=== PATIENT | female | born 1995 | race African-American/Black ===

== ENCOUNTER 2017-04-04 10:43 | Emergency (ER) | payer SELFPAY ==
[~2017-04-04] VITALS: Wt 84.4 kg
[~2017-04-04 10:43] MED LIST: BACTRIM DS 8001 TA1 PO; CIPROFLOXACIN500 MG PO; FLAGYL500 MG PO; KEFLEX500 MG PO; KEPPRA250 MG PO; KEPPRA750 MG PO; MACROBID100 M1 PO; Motrin,Rufen800 MG PO; PERCOCET 325 MG1 TA2 PO; PHENERGAN25 M1 PO; PRENATAL1 TA7 PO; TOPAMAX50 MG PO; ULTRAM50 MG PO; ZOFRAN ODT4 MG SL; Zofran4 MG PO; [UNRECOGNIZED DRUG - OTHER]
[2017-04-04 11:18] LABS: BILIRUBIN NEGATIVE (NEGATIVE); BLOOD NEGATIVE (NEGATIVE); CLARITY SL CLOUDY (CLEAR); COLOR YELLOW (YELLOW); GLUCOSE NEGATIVE (NEGATIVE); KETONE NEGATIVE (NEGATIVE); LEUKO ESTERASE 1+ (NEGATIVE); NITRITE NEGATIVE (NEGATIVE); UROBILINOGEN 0.2 E.U./dl (0.2-1.0)
[2017-04-04 11:27] LABS: BACTERIA TRACE; WBC 21-30 wbc/hpf (0-5)
[2017-04-04 12:23] LABS: BASO % 0.3 % (0.0-1.0); EOS # 0.1 10*3/uL (0.0-0.4); EOS % 1.1 % (1.0-4.0); HEMOGLOBIN 13.4 g/dl (12.0-16.0); LYMPH # 2.4 10*3/uL (1.3-4.4); LYMPH % 34.1 % (27.0-41.0); MEAN CELL VOLUME 85.1 fl (81.0-99.0); MEAN CORPUSCULAR HGB 28.5 pg (27.0-31.0); MEAN CORPUSCULAR HGB CONC 33.5 g/dl (33.0-37.0); MEAN PLATELET VOLUME 9.4 fl (9.6-12.3); MONO # 0.4 10*3/uL (0.1-1.0); MONO % 5.5 % (3.0-9.0); NEUT # 4.2 10*3/uL (2.3-7.9); NEUT % 58.9 % (47.0-73.0); PLATELET COUNT AUTOMATED 240 10*3/uL (130-400); RED CELL DISTRI WIDTH 13.5 % (0-14.5); WHITE BLOOD COUNT 7.1 10*3/uL (4.8-10.8)
[2017-04-04 12:38] LABS: ALBUMIN 3.7 gm/dl (3.1-4.5); ALKALINE PHOSPHATASE 54 U/L (45-117); BUN 12 mg/dl (7-24); CHLORIDE 110 mmol/L (98-107); CREATININE 0.67 mg/dL (0.55-1.02); POTASSIUM 4.1 mmol/L (3.5-5.1); SGOT/AST 8 IU/L (3-35); SGPT/ALT 17 U/L (12-78); SODIUM 141 mmol/L (136-145); TOTAL PROTEIN 7.4 gm/dL (6.4-8.2)
[2017-04-04] MEDS ORDERED: AMINOPHYLLIN200 MG PO (13:09)
== END 2017-04-04 13:12 | disposition home or self-care (01) ==
LOC: ED 10:43
PROVIDERS: Physician Assistant
DX: N30.00 Acute cystitis without hematuria (principal); F17.200 Nicotine dependence, unspecified, uncomplicated; Z88.8 Allergy status to other drugs, medicaments and biological substances

== ENCOUNTER 2017-06-02 23:38 | Emergency (ER) | payer SELFPAY ==
[~2017-06-02] VITALS: Ht 180.3 cm; Wt 77.1 kg
[~2017-06-02 23:38] MED LIST changes: +AMINOPHYLLIN200 MG PO
[2017-06-03 00:09] LABS: BASO % 0.2 % (0.0-1.0); EOS % 0.2 % (1.0-4.0); HEMATOCRIT 40.8 % (37.0-47.0); HEMOGLOBIN 13.9 g/dl (12.0-16.0); LYMPH # 1.5 10*3/uL (1.3-4.4); LYMPH % 11.3 % (27.0-41.0); MEAN CORPUSCULAR HGB CONC 34.1 g/dl (33.0-37.0); MEAN PLATELET VOLUME 9.1 fl (9.6-12.3); MONO # 0.8 10*3/uL (0.1-1.0); MONO % 5.9 % (3.0-9.0); NEUT % 82.1 % (47.0-73.0); PLATELET COUNT AUTOMATED 244 10*3/uL (130-400); RED CELL DISTRI WIDTH 13.6 % (0-14.5); WHITE BLOOD COUNT 13.3 10*3/uL (4.8-10.8)
[2017-06-03 00:22] LABS: BUN 11 mg/dl (7-24); CHLORIDE 103 mmol/L (98-107); CREATININE 0.91 mg/dL (0.55-1.02); POTASSIUM 3.5 mmol/L (3.5-5.1); SODIUM 138 mmol/L (136-145)
[2017-06-03] MEDS ORDERED: Phenergan25 MG PO (02:46)
[2017-06-03] MEDS ORDERED: LOMOTIL 2.5-0.1 EACH PO (02:46)
== END 2017-06-03 03:03 | disposition home or self-care (01) ==
LOC: ED 23:38
PROVIDERS: Student in an Organized Health Care Education/Training Program
DX: A08.4 Viral intestinal infection, unspecified (principal); F17.200 Nicotine dependence, unspecified, uncomplicated; Z88.8 Allergy status to other drugs, medicaments and biological substances

== ENCOUNTER 2017-06-12 10:45 | Emergency (ER) | payer SELFPAY ==
[~2017-06-12] VITALS: Ht 180.3 cm; Wt 85.7 kg
[~2017-06-12 10:45] MED LIST changes: +LOMOTIL 2.5-0.1 EACH PO; +Phenergan25 MG PO
[2017-06-12] MEDS ORDERED: ROBITUSSIN DM 105 ML PO (11:15)
[2017-06-12] MEDS ORDERED: CLARITIN10 MG PO (11:15)
[2017-06-12] MEDS ORDERED: FLONASE ALLERG9.9 ML NAS (11:15)
[2017-06-12] MEDS ORDERED: PREDNISONE10 MG PO (11:15)
== END 2017-06-12 14:40 | disposition home or self-care (01) ==
LOC: ED 10:45
DX: J20.9 Acute bronchitis, unspecified (principal); R03.0 Elevated blood-pressure reading, without diagnosis of hypertension; F17.200 Nicotine dependence, unspecified, uncomplicated; Z79.899 Other long term (current) drug therapy; Z88.8 Allergy status to other drugs, medicaments and biological substances

== ENCOUNTER 2017-08-29 07:43 | Emergency (ER) | payer OTHER ==
[~2017-08-29] VITALS: Ht 180.3 cm; Wt 86.2 kg
[~2017-08-29 07:43] MED LIST changes: +CLARITIN10 MG PO; +FLONASE ALLERG9.9 ML NAS; +PREDNISONE10 MG PO; +ROBITUSSIN DM 105 ML PO
[2017-08-29] MEDS ORDERED: Motrin,Rufen800 MG PO (08:54)
== END 2017-08-29 08:57 | disposition home or self-care (01) ==
LOC: ED 07:43
DX: S63.592A Other specified sprain of left wrist, initial encounter (principal); S16.1XXA Strain of muscle, fascia and tendon at neck level, initial encounter; Z79.899 Other long term (current) drug therapy; Z88.8 Allergy status to other drugs, medicaments and biological substances; V49.88XA Car occupant (driver) (passenger) injured in other specified transport accidents, initial encounter; Y93.89 Activity, other specified; Y92.89 Other specified places as the place of occurrence of the external cause; Y99.9 Unspecified external cause status

== ENCOUNTER 2017-09-22 08:40 | Emergency (ER) | payer SELFPAY ==
[~2017-09-22] VITALS: Ht 180.3 cm; Wt 88.5 kg
[2017-09-22 09:13] LABS: BILIRUBIN NEGATIVE (NEGATIVE); BLOOD NEGATIVE (NEGATIVE); CLARITY SL CLOUDY (CLEAR); COLOR YELLOW (YELLOW); GLUCOSE NEGATIVE (NEGATIVE); KETONE TRACE (NEGATIVE); LEUKO ESTERASE NEGATIVE (NEGATIVE); NITRITE NEGATIVE (NEGATIVE); PH 5.5 (5.0-9.0); SPECIFIC GRAVITY >= 1.030 (1.005-1.030); UROBILINOGEN 0.2 E.U./dl (0.2-1.0)
[2017-09-22 09:22] LABS: BASO % 0.4 % (0.0-1.0); EOS # 0.1 10*3/uL (0.0-0.4); EOS % 1.5 % (1.0-4.0); HEMATOCRIT 40.5 % (37.0-47.0); HEMOGLOBIN 13.7 g/dl (12.0-16.0); LYMPH # 2.4 10*3/uL (1.3-4.4); LYMPH % 30.7 % (27.0-41.0); MEAN CELL VOLUME 86.7 fl (81.0-99.0); MEAN CORPUSCULAR HGB 29.3 pg (27.0-31.0); MEAN CORPUSCULAR HGB CONC 33.8 g/dl (33.0-37.0); MEAN PLATELET VOLUME 9.3 fl (9.6-12.3); MONO # 0.6 10*3/uL (0.1-1.0); MONO % 7.7 % (3.0-9.0); NEUT # 4.6 10*3/uL (2.3-7.9); NEUT % 59.4 % (47.0-73.0); PLATELET COUNT AUTOMATED 253 10*3/uL (130-400); RED BLOOD COUNT 4.67 10*6/uL (4.10-5.10); RED CELL DISTRI WIDTH 13.6 % (0-14.5); WHITE BLOOD COUNT 7.8 10*3/uL (4.8-10.8)
[2017-09-22 09:25] LABS: BACTERIA TRACE; EPITHELIAL CELLS 21-30; MUCOUS TRACE
[2017-09-22 09:34] LABS: URINE AMPHETAMINES < 1000 (1000ng/ml); URINE BARBITURATES < 200 (200ng/ml); URINE BENZODIAZEPINES < 200 (200ng/ml); URINE CANNABINOIDS (THC) > 50 (50ng/ml); URINE COCAINE < 300 (300ng/ml); URINE METHADONE < 300 (300ng/ml); URINE OPIATES > 300 (300ng/ml)
[2017-09-22 09:35] LABS: URINE PHENCYCLIDINE < 25 (25ng/ml)
[2017-09-22 09:37] LABS: ALBUMIN 4.1 gm/dl (3.1-4.5); ALKALINE PHOSPHATASE 52 U/L (45-117); BUN 10 mg/dl (7-24); CHLORIDE 107 mmol/L (98-107); LIPASE 65 U/L (73-393); POTASSIUM 3.8 mmol/L (3.5-5.1); SGOT/AST 10 IU/L (3-35); SGPT/ALT 18 U/L (12-78); SODIUM 138 mmol/L (136-145); TOTAL PROTEIN 7.5 gm/dL (6.4-8.2)
[2017-09-22 09:40] LABS: B-hCG (QUALITATIVE) NEGATIVE (NEGATIVE)
== END 2017-09-22 10:10 | disposition home or self-care (01) ==
LOC: ED 08:40
PROVIDERS: Emergency Medicine
DX: K52.9 Noninfective gastroenteritis and colitis, unspecified (principal); F17.200 Nicotine dependence, unspecified, uncomplicated; Z88.8 Allergy status to other drugs, medicaments and biological substances

== ENCOUNTER 2018-01-04 04:09 | Emergency (ER) | payer SELFPAY ==
[~2018-01-04] VITALS: Ht 180.3 cm; Wt 83.9 kg
[2018-01-04 04:29] LABS: BILIRUBIN NEGATIVE (NEGATIVE); BLOOD NEGATIVE (NEGATIVE); CLARITY CLEAR (CLEAR); COLOR YELLOW (YELLOW); GLUCOSE NEGATIVE (NEGATIVE); KETONE NEGATIVE (NEGATIVE); LEUKO ESTERASE NEGATIVE (NEGATIVE); NITRITE NEGATIVE (NEGATIVE); PH 5.5 (5.0-9.0); UROBILINOGEN 0.2 E.U./dl (0.2-1.0)
[2018-01-04 04:37] LABS: WBC 0-2 wbc/hpf (0-5)
[2018-01-04 04:58] LABS: BASO % 0.3 % (0.0-1.0); EOS # 0.1 10*3/uL (0.0-0.4); EOS % 1.3 % (1.0-4.0); HEMOGLOBIN 13.3 g/dl (12.0-16.0); LYMPH # 3.4 10*3/uL (1.3-4.4); LYMPH % 30.6 % (27.0-41.0); MEAN CELL VOLUME 89.5 fl (81.0-99.0); MEAN CORPUSCULAR HGB 29.8 pg (27.0-31.0); MEAN CORPUSCULAR HGB CONC 33.3 g/dl (33.0-37.0); MEAN PLATELET VOLUME 9.7 fl (9.6-12.3); MONO # 0.8 10*3/uL (0.1-1.0); MONO % 7.2 % (3.0-9.0); NEUT # 6.7 10*3/uL (2.3-7.9); NEUT % 60.4 % (47.0-73.0); PLATELET COUNT AUTOMATED 249 10*3/uL (130-400); RED BLOOD COUNT 4.47 10*6/uL (4.10-5.10); RED CELL DISTRI WIDTH 13.4 % (0-14.5); WHITE BLOOD COUNT 11.1 10*3/uL (4.8-10.8)
[2018-01-04 05:19] LABS: ALBUMIN 3.8 gm/dl (3.1-4.5); ALKALINE PHOSPHATASE 61 U/L (45-117); BUN 12 mg/dl (7-24); CHLORIDE 107 mmol/L (98-107); CREATININE 0.88 mg/dL (0.55-1.02); LIPASE 97 U/L (73-393); POTASSIUM 3.7 mmol/L (3.5-5.1); SGOT/AST 9 IU/L (3-35); SGPT/ALT 19 U/L (12-78); SODIUM 141 mmol/L (136-145)
[2018-01-04] MEDS ORDERED: PEPCID20 MG PO (05:54)
[2018-01-04] MEDS ORDERED: Phenergan25 MG PO (05:54)
== END 2018-01-04 06:27 | disposition home or self-care (01) ==
LOC: ED 04:09
PROVIDERS: Emergency Medicine Emergency Medical Services
DX: K52.9 Noninfective gastroenteritis and colitis, unspecified (principal); F17.200 Nicotine dependence, unspecified, uncomplicated; Z88.8 Allergy status to other drugs, medicaments and biological substances

== ENCOUNTER 2018-01-09 15:16 | Emergency (ER) | payer SELFPAY ==
[~2018-01-09] VITALS: Ht 180.3 cm; Wt 83.9 kg
[~2018-01-09 15:16] MED LIST changes: +PEPCID20 MG PO
[2018-01-09 15:48] LABS: BASO % 0.2 % (0.0-1.0); EOS # 0.1 10*3/uL (0.0-0.4); EOS % 0.7 % (1.0-4.0); HEMATOCRIT 41.6 % (37.0-47.0); HEMOGLOBIN 14.2 g/dl (12.0-16.0); LYMPH # 2.6 10*3/uL (1.3-4.4); LYMPH % 26.6 % (27.0-41.0); MEAN CELL VOLUME 87.8 fl (81.0-99.0); MEAN CORPUSCULAR HGB CONC 34.1 g/dl (33.0-37.0); MEAN PLATELET VOLUME 9.5 fl (9.6-12.3); MONO # 0.7 10*3/uL (0.1-1.0); MONO % 7.2 % (3.0-9.0); NEUT # 6.3 10*3/uL (2.3-7.9); NEUT % 65.1 % (47.0-73.0); PLATELET COUNT AUTOMATED 240 10*3/uL (130-400); RED BLOOD COUNT 4.74 10*6/uL (4.10-5.10); RED CELL DISTRI WIDTH 13.2 % (0-14.5); WHITE BLOOD COUNT 9.6 10*3/uL (4.8-10.8)
[2018-01-09] MEDS ORDERED: PRENATAL VITAM1 EAC4 PO (15:51)
[2018-01-09 16:11] LABS: ALKALINE PHOSPHATASE 50 U/L (45-117); BUN 11 mg/dl (7-24); CHLORIDE 108 mmol/L (98-107); CREATININE 0.88 mg/dL (0.55-1.02); POTASSIUM 3.7 mmol/L (3.5-5.1); SGOT/AST 8 IU/L (3-35); SGPT/ALT 17 U/L (12-78); SODIUM 139 mmol/L (136-145); TOTAL PROTEIN 7.4 gm/dL (6.4-8.2)
[2018-01-09 16:22] LABS: BILIRUBIN NEGATIVE (NEGATIVE); BLOOD NEGATIVE (NEGATIVE); CLARITY SL CLOUDY (CLEAR); COLOR YELLOW (YELLOW); GLUCOSE NEGATIVE (NEGATIVE); KETONE TRACE (NEGATIVE); LEUKO ESTERASE NEGATIVE (NEGATIVE); NITRITE NEGATIVE (NEGATIVE); PH 5.5 (5.0-9.0); SPECIFIC GRAVITY 1.025 (1.005-1.030); UROBILINOGEN 0.2 E.U./dl (0.2-1.0)
[2018-01-09 16:37] LABS: MUCOUS 1+
== END 2018-01-09 16:25 | disposition home or self-care (01) ==
LOC: ED 15:16
PROVIDERS: Nurse Practitioner Family
DX: Z32.01 Encounter for pregnancy test, result positive (principal); R03.0 Elevated blood-pressure reading, without diagnosis of hypertension

== ENCOUNTER 2018-04-16 01:18 | Emergency (ER) | payer SELFPAY ==
[~2018-04-16] VITALS: Ht 180.3 cm; Wt 85.7 kg
[~2018-04-16 01:18] MED LIST changes: +PRENATAL VITAM1 EAC4 PO
[2018-04-16 01:43] LABS: BILIRUBIN NEGATIVE (NEGATIVE); BLOOD NEGATIVE (NEGATIVE); CLARITY SL CLOUDY (CLEAR); COLOR YELLOW (YELLOW); GLUCOSE NEGATIVE (NEGATIVE); KETONE TRACE (NEGATIVE); LEUKO ESTERASE TRACE (NEGATIVE); NITRITE NEGATIVE (NEGATIVE); UROBILINOGEN 0.2 E.U./dl (0.2-1.0)
[2018-04-16 01:48] LABS: BACTERIA 1+; EPITHELIAL CELLS 45-50
[2018-04-16] MEDS ORDERED: OMNICEF300 MG PO (01:58)
[2018-04-16] MEDS ORDERED: CYCLOBENZAPRINE5 M3 PO (01:59)
== END 2018-04-16 02:37 | disposition home or self-care (01) ==
LOC: ED 01:18
PROVIDERS: Nurse Practitioner Family
DX: S39.012A Strain of muscle, fascia and tendon of lower back, initial encounter (principal); J02.0 Streptococcal pharyngitis; N39.0 Urinary tract infection, site not specified; Z88.8 Allergy status to other drugs, medicaments and biological substances; X58.XXXA Exposure to other specified factors, initial encounter; Y93.89 Activity, other specified; Y92.89 Other specified places as the place of occurrence of the external cause; Y99.8 Other external cause status

== ENCOUNTER 2018-04-25 18:06 | Emergency (ER) | payer SELFPAY ==
[~2018-04-25] VITALS: Wt 72.6 kg
[~2018-04-25 18:06] MED LIST changes: +CYCLOBENZAPRINE5 M3 PO; +OMNICEF300 MG PO
[2018-04-25 18:32] LABS: BILIRUBIN NEGATIVE (NEGATIVE); BLOOD NEGATIVE (NEGATIVE); CLARITY SL CLOUDY (CLEAR); COLOR YELLOW (YELLOW); GLUCOSE NEGATIVE (NEGATIVE); KETONE NEGATIVE (NEGATIVE); LEUKO ESTERASE NEGATIVE (NEGATIVE); NITRITE NEGATIVE (NEGATIVE); PH 5.5 (5.0-9.0); SPECIFIC GRAVITY >= 1.030 (1.005-1.030); UROBILINOGEN 0.2 E.U./dl (0.2-1.0)
[2018-04-25] MEDS ORDERED: NAPROSYN500 MG PO (18:41)
[2018-04-25 18:54] LABS: BACTERIA 2+; EPITHELIAL CELLS 30-35; MUCOUS TRACE; RBC 0-2 rbc/hpf (0-2)
== END 2018-04-25 19:55 | disposition home or self-care (01) ==
LOC: ED 18:06
PROVIDERS: Nurse Practitioner Family
DX: M54.5 Low back pain (principal); R03.0 Elevated blood-pressure reading, without diagnosis of hypertension; Z88.8 Allergy status to other drugs, medicaments and biological substances

== ENCOUNTER 2019-04-23 19:17 | Emergency (ER) | payer SELFPAY ==
[~2019-04-23] VITALS: Ht 180.3 cm; Wt 89.4 kg
[~2019-04-23 19:17] MED LIST changes: +NAPROSYN500 MG PO; +REGLAN10 M1 PO
[2019-04-23 19:52] LABS: BILIRUBIN NEGATIVE (NEGATIVE); BLOOD NEGATIVE (NEGATIVE); CLARITY SL CLOUDY (CLEAR); COLOR YELLOW (YELLOW); GLUCOSE NEGATIVE (NEGATIVE); KETONE 2+ (NEGATIVE); LEUKO ESTERASE NEGATIVE (NEGATIVE); NITRITE NEGATIVE (NEGATIVE); SPECIFIC GRAVITY >= 1.030 (1.005-1.030); UROBILINOGEN 0.2 E.U./dl (0.2-1.0)
[2019-04-23] MEDS ORDERED: ROBAXIN-750750 MG PO (19:58)
[2019-04-23] MEDS ORDERED: ANAPROX DS550 MG PO (19:58)
[2019-04-23 19:59] LABS: BACTERIA TRACE; EPITHELIAL CELLS 16-20; MUCOUS 1+
== END 2019-04-23 20:23 | disposition home or self-care (01) ==
LOC: ED 19:17
PROVIDERS: Physician Assistant
DX: M54.5 Low back pain (principal); Z88.8 Allergy status to other drugs, medicaments and biological substances

== ENCOUNTER 2019-06-30 10:53 | Emergency (ER) | payer SELFPAY ==
[~2019-06-30] VITALS: Ht 180.3 cm; Wt 89.4 kg
[~2019-06-30 10:53] MED LIST changes: +ANAPROX DS550 MG PO; +ROBAXIN-750750 MG PO
[2019-06-30] MEDS ORDERED: AMOXICILLIN500 M2 PO (11:48)
[2019-06-30] MEDS ORDERED: ZYRTEC10 M3 PO (11:51)
== END 2019-06-30 11:53 | disposition home or self-care (01) ==
LOC: ED 10:53
DX: J02.9 Acute pharyngitis, unspecified (principal); H10.11 Acute atopic conjunctivitis, right eye; G43.909 Migraine, unspecified, not intractable, without status migrainosus; Z88.8 Allergy status to other drugs, medicaments and biological substances

== ENCOUNTER 2023-05-18 07:24 | Emergency (ER) | payer OTHER ==
[~2023-05-18] VITALS: Ht 180.3 cm; Wt 94.8 kg
[~2023-05-18 07:24] MED LIST changes: +AMOXICILLIN500 M2 PO; +ZYRTEC10 M3 PO
[2023-05-18 08:46] LABS: BILIRUBIN Negative (Negative); BLOOD Negative (Negative); CLARITY Clear (Clear); COLOR Yellow (Yellow); GLUCOSE Negative (Negative); KETONE Negative (Negative); LEUKO ESTERASE Negative (Negative); NITRITE Negative (Negative); PH 7.5 (4.5-8.0); SPECIFIC GRAVITY 1.025 (1.001-1.030); UROBILINOGEN 0.2 E.U./dl (0.0-1.0)
[2023-05-18 08:58] LABS: BACTERIA 1+; WBC 0-2 wbc/hpf (0-5)
[2023-05-18] MEDS ORDERED: MUCINEX1200 M1 PO (10:30)
[2023-05-18] MEDS ORDERED: AMOX-CLAV 875-1 EACH PO (10:30)
== END 2023-05-18 10:49 | disposition home or self-care (01) ==
LOC: ED 07:24
PROVIDERS: Family Medicine
DX: J18.9 Pneumonia, unspecified organism (principal); M54.9 Dorsalgia, unspecified; G43.909 Migraine, unspecified, not intractable, without status migrainosus; Z88.8 Allergy status to other drugs, medicaments and biological substances; F17.210 Nicotine dependence, cigarettes, uncomplicated; Z20.822 Contact with and (suspected) exposure to COVID-19